=== PATIENT | female | born 1995 | race Caucasian/White ===

== ENCOUNTER 2021-11-24 21:02 | Emergency (ER) | payer OTHER ==
[~2021-11-24] VITALS: Ht 160 cm; Wt 59.1 kg
[2021-11-24 21:05] VITALS: TEMP 98
[2021-11-24 21:34] LABS: STREP SCREEN NEGATIVE
[2021-11-24 21:38] VITALS: BP 122/78; PULSE 76
[2021-11-24 21:48] LABS: MONOSCREEN NEGATIVE
== END 2021-11-24 21:38 | disposition home or self-care (01) ==
LOC: COL.ER 21:02
PROVIDERS: Emergency Medicine
DX: J02.9 Acute pharyngitis, unspecified (principal); Z20.822 Contact with and (suspected) exposure to COVID-19